=== PATIENT | male | born 1990 | race Caucasian/White ===

== ENCOUNTER 2016-11-11 11:12 | Inpatient (IN) | payer OTHER ==
[2016-11-11] MEDS ORDERED: SODIUM CHLORIDE 0.9% 1000ML 1,000 ML IV SCH (11:30)
[2016-11-11] MEDS: SODIUM CHLORIDE 0.9% FLUSH 10 ML SOL IV PRN ×2 (11:52→13:14)
[2016-11-11] MEDS ORDERED: ONDANSETRON HCL 4 MG/2 ML SOL IV ONE (11:53)
[2016-11-11] MEDS ORDERED: ONDANSETRON HCL 4 MG/2 ML SOL ONE (11:54)
[2016-11-11 12:03] LABS: BASOPHILS % (AUTO) 0 % (0-3); EOSINOPHILS % (AUTO) 1 % (0-9); HEMATOCRIT 50 % (39-53); MEAN CORPUSCULAR VOLUME 83 fL (80-100); MONOCYTES % (AUTO) 4.4 % (0-12); NEUTROPHILS % (AUTO) 91.4 % (37-80)
[2016-11-11 12:20] LABS: ALBUMIN 4.6 gm/dl (3.4-5.0); POTASSIUM 3.8 mMol/L (3.5-5.1)
[2016-11-11] MEDS ORDERED: SODIUM CHLORIDE 0.9% 1000ML 1,000 ML IV ONE (13:08)
[2016-11-11] MEDS ORDERED: PANTOPRAZOLE SODIUM 40 MG/10 ML PDS IV ONE (13:08)
[2016-11-11] MEDS ORDERED: PANTOPRAZOLE SODIUM 40 MG/10 ML PDS ONE (13:09)
[2016-11-11] MEDS ORDERED: KETOROLAC TROMETHAMINE 30 MG/ML SOL IV PRN (14:22)
[2016-11-11] MEDS: ONDANSETRON HCL 4 MG/2 ML SOL IV PRN ×2 (14:40→19:52)
[2016-11-11] MEDS: DEXTROSE/SALINE 0.45/KCL 20MEQ 1,000 ML/1,000 ML SOL IV SCH ×2 (14:48→23:35)
[2016-11-11] MEDS ORDERED: LIDOCAINE HCL 2% (VISCOUS) 20 ML SOL MT ONE ×2 (15:32→19:14)
[2016-11-11] MEDS ORDERED: ALUMINUM/MAGNESIUM 30 ML SUS PO PRN ×2 (15:33→19:15)
[2016-11-11] MEDS ORDERED: LEVOFLOXACIN 25 MG/ML 500 MG in SODIUM CHLORIDE 0.9% 100 ML 100 ML IV SCH (15:45)
[2016-11-11] MEDS: METRONIDAZOLE 500 MG (PREMIX) 500 MG/100 ML SOL IV SCH ×2 (15:54→23:35)
[2016-11-11] MEDS ORDERED: LEVOFLOXACIN 25 MG/ML SOL IV ONE (16:28)
[2016-11-11] MEDS ORDERED: SODIUM CHLORIDE 0.9% 100 ML 100 ML IV ONE (16:30)
[2016-11-11] MEDS ORDERED: PROMETHAZINE HYDROCHLORIDE 25 MG/ML SOL IV PRN (17:24)
[2016-11-11] MEDS ORDERED: [UNRECOGNIZED DRUG - OTHER] IM PRN (17:50)
[2016-11-11] MEDS ORDERED: HYDROMORPHONE 1 MG/ML SYRINGE ONE ×2 (19:41→22:07)
[2016-11-11] MEDS: HYDROMORPHONE HCL 2 MG/ML SOL IV PRN ×2 (19:45→22:13)
[2016-11-11] MEDS ORDERED: RANITIDINE HYDROCHLORIDE 25 MG/ML SOL ONE (19:51)
[2016-11-11] MEDS: SODIUM CHLORIDE IV SCH (19:52)
[2016-11-11] MEDS: RANITIDINE HCL IV SCH (19:52)
[2016-11-12] MEDS ORDERED: RANITIDINE HYDROCHLORIDE 25 MG/ML SOL ONE (01:53)
[2016-11-12] MEDS: SODIUM CHLORIDE IV SCH ×2 (01:59→08:10)
[2016-11-12] MEDS: RANITIDINE HCL IV SCH ×2 (01:59→08:10)
[2016-11-12] MEDS ORDERED: HYDROMORPHONE 1 MG/ML SYRINGE ONE (02:06)
[2016-11-12] MEDS: HYDROMORPHONE HCL 2 MG/ML SOL IV PRN (02:09)
[2016-11-12] MEDS: ONDANSETRON HCL 4 MG/2 ML SOL IV PRN (02:10)
[2016-11-12 07:25] LABS: BASOPHILS % (AUTO) 1 % (0-3); EOSINOPHILS % (AUTO) 3 % (0-9); HEMATOCRIT 42 % (39-53); MEAN CORPUSCULAR HGB CONC 36.8 gm/dl (32.0-36.0); MEAN CORPUSCULAR VOLUME 84 fL (80-100); MONOCYTES % (AUTO) 11.2 % (0-12); NEUTROPHILS % (AUTO) 65.1 % (37-80)
[2016-11-12 07:29] LABS: CALCIUM 8.2 mg/dl (8.5-10.1)
[2016-11-12] MEDS: METRONIDAZOLE 500 MG (PREMIX) 500 MG/100 ML SOL IV SCH ×2 (07:52→08:24)
[2016-11-12] MEDS ORDERED: HYDROMORPHONE 1 MG/ML SYRINGE IV PRN (07:58)
[2016-11-12] MEDS: DEXTROSE/SALINE 0.45/KCL 20MEQ 1,000 ML/1,000 ML SOL IV SCH (08:03)
[2016-11-12] MEDS: SODIUM CHLORIDE 0.9% FLUSH 10 ML SOL IV PRN ×2 (08:09→20:28)
[2016-11-12] MEDS ORDERED: ONDANSETRON HCL 4 MG TAB PO PRN (08:48)
[2016-11-12] MEDS: METRONIDAZOLE 250 MG TAB PO SCH ×3 (10:09→20:28)
[2016-11-12] MEDS: FAMOTIDINE 20 MG TAB PO SCH ×2 (10:19→20:28)
[2016-11-12] MEDS: APAP/HYDROCODONE 325/5 TAB PO PRN ×2 (12:56→20:28)
[2016-11-12] MEDS ORDERED: LEVOFLOXACIN 500 MG in 100 ML (PREMIX) IV SCH (16:00)
[2016-11-12 18:11] VITALS: O2SAT 96
[2016-11-12 20:24] VITALS: TEMP 97.5
[2016-11-13] MEDS: METRONIDAZOLE 250 MG TAB PO SCH (08:24)
[2016-11-13] MEDS: APAP/HYDROCODONE 325/5 TAB PO PRN (08:24)
[2016-11-13] MEDS: FAMOTIDINE 20 MG TAB PO SCH (08:24)
[2016-11-13 08:30] VITALS: BP 114/79; PULSE 67; RESP 18
== END 2016-11-13 10:15 | disposition home or self-care (01) | DRG 373 ==
LOC: ED 11:12 → UNDOADMIN 13:22 → ACUTE CARE 13:22 → UNDOADMIN 13:24 → ACUTE CARE 13:30
PROVIDERS: ADMIT Emergency Medicine; ATTEND Emergency Medicine
DX: A04.7 Enterocolitis due to Clostridium difficile (principal); E86.0 Dehydration; R12 Heartburn
CPT/HCPCS: 36415; 74020; 80048; 80053; 82150; 85025; 99070; 99285; J1885; J1956; J2405; J2780; J3250; J1170

== ENCOUNTER 2016-12-06 07:33 | Day surgery (SDC) | payer OTHER ==
[2016-12-06] MEDS ORDERED: FENTANYL 100MCG/2ML SOL ONE (07:36)
[2016-12-06] MEDS ORDERED: ONDANSETRON HCL 4 MG/2 ML SOL ONE (07:36)
[2016-12-06] MEDS ORDERED: PROPOFOL 10 MG/ML EMU IV ONE (07:36)
[2016-12-06] MEDS ORDERED: MIDAZOLAM 2 MG/2 ML SOL ONE (07:36)
[2016-12-06] MEDS ORDERED: LIDOCAINE HCL 1% MPF SOL ONE (07:36)
[2016-12-06] MEDS ORDERED: GLYCOPYRROLATE 0.2 MG/ML SOL ONE (07:49)
[2016-12-06] MEDS ORDERED: NEOSTIGMINE METHYLSULFATE 1 MG/ML SOL ONE (07:49)
[2016-12-06] MEDS ORDERED: CEFAZOLIN SODIUM 1 GM PDS ONE (08:06)
[2016-12-06] MEDS ORDERED: BUPIVACAINE/EPI 0.5% 10 ML SOL INFIL ONE (08:41)
[2016-12-06] MEDS ORDERED: HYDROMORPHONE 1 MG/ML SYRINGE ONE (08:48)
[2016-12-06] MEDS ORDERED: KETOROLAC TROMETHAMINE 30 MG/ML SOL ONE (09:34)
[2016-12-06] MEDS: MORPHINE SULFATE 10 MG/ML SOL ONE ×3 (10:16→10:55)
[2016-12-06 11:19] VITALS: TEMP 97.4
[2016-12-06 12:00] VITALS: RESP 18
[2016-12-06 12:54] VITALS: BP 114/74; PULSE 80; O2SAT 96
== END 2016-12-06 12:46 | disposition home or self-care (01) | DRG 446 ==
LOC: SURG 07:33
PROVIDERS: ATTEND Surgery
DX: K81.1 Chronic cholecystitis (principal)
CPT/HCPCS: 99001; J0330; J0690; J1885; J2250; J2270; J2405; J2710; J3010; J7643; J1170; J2001; J2704

== ENCOUNTER 2017-12-19 14:38 | Outpatient (CLI) | payer OTHER ==
[2016-12-06 12:54] VITALS: O2SAT 96
== END 2017-12-19 14:39 | disposition home or self-care (01) | DRG 914 ==
LOC: CONVCARE 14:38
PROVIDERS: ATTEND Orthopaedic Surgery
DX: S49.92XA Unspecified injury of left shoulder and upper arm, initial encounter (principal); M25.512 Pain in left shoulder; S53.402A Unspecified sprain of left elbow, initial encounter
CPT/HCPCS: 73030; 73070

== ENCOUNTER 2018-10-12 06:58 | Emergency (ER) | payer BC, OTHER ==
[2018-10-12] MEDS ORDERED: SODIUM CHLORIDE 0.9% 1000ML 1,000 ML IV ONE (07:18)
[2018-10-12] MEDS ORDERED: ONDANSETRON HCL 4 MG/2 ML SOL IV PRN (07:19)
[2018-10-12 07:24] VITALS: TEMP 96.9
[2018-10-12 07:30] LABS: BASOPHILS % (AUTO) 0 % (0-3); EOSINOPHILS % (AUTO) 2 % (0-9); HEMATOCRIT 51 % (39-53); HEMOGLOBIN 16.6 gm/dl (13.5-17.7); LYMPHOCYTES % (AUTO) 7.4 % (10-50); MEAN CORPUSCULAR HEMOGLOBIN 29.1 pg (27.0-32.0); MEAN CORPUSCULAR HGB CONC 32.8 gm/dl (32.0-36.0); MEAN CORPUSCULAR VOLUME 89 fL (80-100); MONOCYTES % (AUTO) 5.2 % (0-12); NEUTROPHILS % (AUTO) 84.8 % (37-80)
[2018-10-12] MEDS ORDERED: ONDANSETRON HCL 4 MG/2 ML SOL ONE (07:32)
[2018-10-12 07:47] LABS: BILIRUBIN,TOTAL 0.5 mg/dl (0.2-1.0); CALCIUM 8.6 mg/dl (8.5-10.1); CARBON DIOXIDE 23.5 mEq/L (21-32); CREATININE 0.85 mg/dl (0.80-1.30); POTASSIUM 3.7 mMol/L (3.5-5.1)
[2018-10-12] MEDS ORDERED: PANTOPRAZOLE SODIUM 40 MG/10 ML PDS IV ONE (08:05)
[2018-10-12] MEDS ORDERED: PANTOPRAZOLE SODIUM 40 MG/10 ML PDS ONE (08:12)
[2018-10-12 08:32] VITALS: RESP 18
[2018-10-12 09:01] VITALS: PULSE 70
[2018-10-12 09:23] VITALS: BP 123/62; O2SAT 98
== END 2018-10-12 09:37 | disposition home or self-care (01) ==
LOC: ED 06:58
DX: K92.2 Gastrointestinal hemorrhage, unspecified (principal)
CPT/HCPCS: 80053; 85025; 96365; 96366; 96374; 96375; 99283; 99285; J2405